=== PATIENT | male | born 1980 | race Two or more races ===

== ENCOUNTER 2020-10-05 09:16 | Emergency (ER) | payer OTHER ==
[~2020-10-05] VITALS: Ht 185.4 cm; Wt 90.3 kg
[2020-10-05 09:57] VITALS: BP 131/99
== END 2020-10-05 10:37 | disposition home or self-care (01) ==
LOC: ER 09:16
DX: G89.18 Other acute postprocedural pain (principal); M79.645 Pain in left finger(s)

== ENCOUNTER 2020-10-17 06:32 | Emergency (ER) | payer OTHER ==
[~2020-10-17] VITALS: Ht 182.9 cm; Wt 89.8 kg
[2020-10-17 06:43] VITALS: BP 135/82
[2020-10-17] MEDS ORDERED: KETOROLAC TROMETH 60MG/2ML VIAL IM ONE (07:30)
== END 2020-10-17 08:11 | disposition home or self-care (01) ==
LOC: ER 06:32
DX: G89.18 Other acute postprocedural pain (principal); M79.645 Pain in left finger(s)
CPT/HCPCS: 29130; 96372; 99283; J1885